=== PATIENT | female | born 1960 | race African-American/Black ===

== ENCOUNTER 2024-06-09 21:06 | Emergency (ER) | payer OTHER ==
[2024-06-09 21:12] VITALS: BP 130/70; PULSE 83; RESP 19; TEMP 98.8; BMI 30.9
[2024-06-09] MEDS ORDERED: FAMOTIDINE 20 MG/50 ML IVPB 20 MG/50 ML MG IVPB ONE (22:29)
[2024-06-09] MEDS ORDERED: ACETAMINOPHEN INJECTION 100 ML IVPB ONE (22:29)
[2024-06-09] MEDS ORDERED: ONDANSETRON 4 MG/2 ML VIAL ONE (22:29)
[2024-06-09] MEDS: ACETAMINOPHEN 1000 MG/100 ML BAG IVPB ONE (22:48)
[2024-06-09] MEDS: LACTATED RINGERS SOLUTION 1000 ML INFUS.BAG IV ONE (22:48)
[2024-06-09] MEDS: FAMOTIDINE 20 MG/50 ML IVPB 20 MG/50 ML MG IVPB ONE (22:49)
[2024-06-09] MEDS: ONDANSETRON 4 MG/2 ML VIAL IVPUSH ONE (22:49)
[2024-06-09 22:53] LABS: BASO % 0.2 % (0-2.0); EOS % 0.1 % (0-4.5); HEMATOCRIT 35.4 % (32.4-45.2); HEMOGLOBIN 11.6 GM/dL (10.7-15.3); LYMPH % 8.8 % (8-40); MCH 26.1 pg (25.7-33.7); MCHC 32.9 g/dl (32.0-36.0); MEAN CELL VOLUME 79.1 fl (80-96); MEAN PLT VOLUME 8.5 fl (7.5-11.1); MONO % 3.4 % (3.8-10.2); NEUT % 87.5 % (42.8-82.8); PLATELET COUNT 241 10^3/uL (134-434); RBC 4.47 M/mm3 (3.60-5.2); WHITE BLOOD COUNT 5.9 K/mm3 (4.0-10.0)
[2024-06-09 23:15] LABS: POTASSIUM 4.4 mmol/L (3.5-5.1)
[2024-06-09 23:17] LABS: BLOOD UREA NITROGEN 17.4 mg/dL (7-18); CALCIUM 9.6 mg/dL (8.5-10.1); MAGNESIUM 2.1 mg/dL (1.8-2.4)
[2024-06-09 23:20] LABS: CREATININE 0.8 mg/dL (0.55-1.3)
[2024-06-09 23:22] LABS: BILIRUBIN,TOTAL 0.5 mg/dL (0.2-1); TOT PROT 8.7 g/dl (6.4-8.2)
[2024-06-10 00:23] LABS: HIV INTERPRETATION NEGATIVE (NEGATIVE)
== END 2024-06-10 01:12 | disposition home or self-care (01) ==
LOC: JER 21:06
PROC: 3E03329 Introduction of Other Anti-infective into Peripheral Vein, Percutaneous Approach (ICD-10-PCS; principal; 2024-06-09)
PROC: 3E033NZ Introduction of Analgesics, Hypnotics, Sedatives into Peripheral Vein, Percutaneous Approach (ICD-10-PCS; 2024-06-09)
PROC: 3E033GC Introduction of Other Therapeutic Substance into Peripheral Vein, Percutaneous Approach (ICD-10-PCS; 2024-06-09)
DX: R11.2 Nausea with vomiting, unspecified (principal); R19.7 Diarrhea, unspecified; R10.30 Lower abdominal pain, unspecified; Z20.822 Contact with and (suspected) exposure to COVID-19
CPT/HCPCS: 0241U-QW; 36415; 80053; 83605; 83690; 83735; 84484; 85025; 86803; 87389; 93005; 93010; 99284-25; J0131